=== PATIENT | male | born 1945 | race Caucasian/White ===

== ENCOUNTER 2019-08-11 02:03 | Emergency (ER) | payer OTHER, BC ==
[~2019-08-11] VITALS: Ht 177.8 cm; Wt 72.6 kg
[2019-08-11] MEDS ORDERED: PLAVIX75 MG (02:30)
[2019-08-11] MEDS ORDERED: ASPIR 8181 MG (02:31)
[2019-08-11] MEDS ORDERED: ENTRESTO 24 MG1 EACH (02:31)
== END 2019-08-11 05:44 | disposition home or self-care (01) ==
LOC: ER 02:03
DX: R04.0 Epistaxis (principal)